=== PATIENT | female | born 1955 | race Caucasian/White ===

== ENCOUNTER 2017-12-31 02:15 | Emergency (ER) | payer MEDICARE ==
[~2017-12-31] VITALS: Ht 160 cm; Wt 85.9 kg
[2017-12-31 02:18] VITALS: Ht 160 cm; Wt 85.9 kg
[2017-12-31] MEDS ORDERED: MORPHINE IMMEDI15 MG PO (02:19)
[2017-12-31] MEDS ORDERED: BUPROPION XL300 MG (02:19)
[2017-12-31] MEDS ORDERED: LEXAPRO20 MG PO (02:20)
[2017-12-31] MEDS ORDERED: ELAVIL25 MG (02:20)
[2017-12-31] MEDS ORDERED: LYRICA150 MG (02:20)
[2017-12-31] MEDS ORDERED: NORCO 7.5/325 T1 TA1 (02:20)
[2017-12-31] MEDS ORDERED: CYCLOBENZAPRINE10 MG (02:20)
[2017-12-31 03:32] LABS: BASOPHILS 0.5 % (0-2); HEMATOCRIT 40.7 % (36.0-48.0); HEMOGLOBIN 13.4 g/dL (12-16); IMMATURE GRANULOCYTES 0.3 % (0-5); LYMPHOCYTES 35.4 % (15-50); MCH 30.9 pg (26.0-34.0); MCHC 32.9 g/dL (31.0-37.0); MEAN PLATELET VOLUME 9.8 fL (7.4-10.4); NEUTROPHILS 49.8 % (40-80); PLATELET COUNT 249 10x3/uL (130-400); RBC 4.33 10x6/uL (4.00-5.40); RDW 13.8 % (11.5-14.5)
[2017-12-31 03:48] LABS: ALBUMIN 3.5 g/dL (3.4-5.0); BILIRUBIN - TOTAL 0.2 mg/dL (0.2-1.3); CALCIUM 8.7 mg/dL (8.5-10.1); CARBON DIOXIDE 32.6 mmol/L (21.0-32.0); CREATININE - SERUM 0.9 mg/dL (0.6-1.3); POTASSIUM - SERUM 3.6 mmol/L (3.5-5.1); PROTEIN - SERUM 7.1 g/dL (6.4-8.2)
[2017-12-31 06:58] VITALS: BP 132/78
== END 2017-12-31 06:35 | disposition home or self-care (01) ==
LOC: EDBD 02:15 → D.ER 02:15
PROVIDERS: Family Medicine
DX: S06.0X0A Concussion without loss of consciousness, initial encounter (principal); W01.0XXA Fall on same level from slipping, tripping and stumbling without subsequent striking against object, initial encounter; Y93.89 Activity, other specified; Y92.019 Unspecified place in single-family (private) house as the place of occurrence of the external cause; M54.5 Low back pain

== ENCOUNTER → 2018-01-05 15:25 | Outpatient (CLI) | payer MEDICARE ==
[2017-12-31 02:18] VITALS: BMI 33.5
[~2018-01-05 15:25] MED LIST: BUPROPION XL300 MG; CYCLOBENZAPRINE10 MG; ELAVIL25 MG; LEXAPRO20 MG PO; LYRICA150 MG; MORPHINE IMMEDI15 MG PO; NORCO 7.5/325 T1 TA1
== END | disposition home or self-care (01) ==
LOC: D.CT 15:25
DX: M25.561 Pain in right knee (principal)

== ENCOUNTER 2018-09-18 13:18 | Inpatient (IN) | payer MEDICARE ==
[~2018-09-18] VITALS: Ht 162.6 cm; Wt 77.6 kg
[~2018-09-18 13:18] MED LIST changes: -BUPROPION XL300 MG; +BUPROPION XL300 MG PO; -CYCLOBENZAPRINE10 MG; +CYCLOBENZAPRINE10 MG PO; -ELAVIL25 MG; +ELAVIL25 MG PO; +HYDROCODON-ACE1 EAC2 PO; -LYRICA150 MG; +LYRICA150 MG PO; -NORCO 7.5/325 T1 TA1
--- NOTE | 2018-09-18 14:20 | NUR ---
PATIENT AMBULATED TO FLOOR. RECEIVED TO ROOM FOR INTAKE. ASSUMED CARE.
[2018-09-18] MEDS ORDERED: AMBIEN10 MG PO (14:23)
[2018-09-18] MEDS ORDERED: CLIMARA 0.0.1 MG/PAT TRANSDERM (14:24)
[2018-09-18] MEDS ORDERED: NORVASC2.5 MG PO (14:24)
[2018-09-18 16:20] VITALS: BMI 29.4
--- NOTE | 2018-09-18 16:30 | NUR ---
20G PIV PLACED IN RIGHT AC BY MELINA SCHNEIDERHIDE HOUSE SUPERVISOR.
[2018-09-18 18:41] VITALS: BP 139/58
--- NOTE | 2018-09-18 19:22 | NUR ---
PT ALERT AND ORIENTED. STATES SHE HAS BEEN SYMPTAMATIC FOR A WHILE NOW BUT IN MAY AND CONTRIBUTED SYMPTOMS TO GRIEF AND STRESS. PT STATES SHE DOES NOT LIKE ZOFRAN. ABDOMINAL ASSESSMENT PRESENTS WITH SOFT ABDOMEN, ACTIVE BOWELS, PAIN TO RIGHT UPPERA ND LOWER QUADRANT. PT PRESENTS WITH JAUNDICE AND YELLOW SCLERA IN BILATERAL EYES. PT COMPLAINS OF DISCOMFORT. AWAITING ORDERS FOR PAIN MEDICINE AND WILL ADMINSITER WHEN AVAILABLE. CALL LIGHT IN REACH.
[2018-09-18 20:12] LABS: AMYLASE - SERUM 24 U/L (25-115); LIPASE 77 U/L (73-393)
--- NOTE | 2018-09-18 20:20 | NUR ---
PAIN MEDICINE ADMINSITERED PER ORDER. PT TOLERATED WELL.
[2018-09-18 20:36] VITALS: BP 127/60
[2018-09-19 01:08] VITALS: BP 143/76
--- NOTE | 2018-09-19 02:34 | NUR ---
I have reviewed this patient and I concur with the Shift Assessment completed by the Licensed Practical Nurse today this shift.
[2018-09-19 05:29] VITALS: BP 150/76
[2018-09-19 06:03] LABS: BASOPHILS 0 % (0-2); EOSINOPHILS 0.4 % (0-7); HEMATOCRIT 37.1 % (36.0-48.0); HEMOGLOBIN 12.7 g/dL (12-16); IMMATURE GRANULOCYTES 0.3 % (0-5); MCH 31.8 pg (26.0-34.0); MCHC 34.2 g/dL (31.0-37.0); MCV 92.8 fL (80.0-100.0); MEAN PLATELET VOLUME 11.6 fL (7.4-10.4); MONOCYTES 10.1 % (2-11); NEUTROPHILS 76.2 % (40-80); PLATELET COUNT 272 10x3/uL (130-400); RDW 15.6 % (11.5-14.5); WBC 13.3 10x3/uL (4.8-10.8)
[2018-09-19 06:41] LABS: ALBUMIN 2.4 g/dL (3.4-5.0); ALKALINE PHOSPHATASE 632 U/L (46-116); ALT (SGPT) 68 U/L (10-68); BILIRUBIN - TOTAL 13.77 mg/dL (0.2-1.3); CALC OSMOLALITY 270 mosm/kg (275-300); CALCIUM 8.2 mg/dL (8.5-10.1); CARBON DIOXIDE 29.2 mmol/L (21.0-32.0); CHLORIDE - SERUM 96 mmol/L (98-107); CREATININE - SERUM 0.6 mg/dL (0.6-1.3); GLUCOSE 120 mg/dL (74-106); PROTEIN - SERUM 6.4 g/dL (6.4-8.2); SODIUM 136 mmol/L (136-145); UREA NITROGEN 8 mg/dL (7-18); eGFR NON AFRICAN AMERICAN > 90 mL/min (90-120)
[2018-09-19 06:45] LABS: INR 1.12 (0.85-1.17); POTASSIUM - SERUM 2.6 mmol/L (3.5-5.1); PROTIME 13.9 SECONDS (11.6-15.0)
--- NOTE | 2018-09-19 07:15 | NUR ---
INITIAL ROUNDING, THE PATIENT IS AWAKE AND RESTING IN BED, IV PUMP BEEPING, NEW BAG OF FLUIDS AT THIS TIME. NO S/S OF SOB/DISTRESS NOTED. 0734 DR JENKINS RETURNED THE PAGE AND WAS NOTIFIED OF THE CONSULT 0735 DR SANCHEZ RETURNED THE PAGE AND WAS NOTIFIED OF THE K+ 2.6 RESULT, NEW ORDER TO FOLLOW ELECTROLYTE PROTOCOL GIVEN.
--- NOTE | 2018-09-19 07:30 | NUR ---
CALLED AND SPOKE TO OSWALDO WITH THE ANSWERING SERVICE AT DR VIDES OFFICE. ASKED TO HAVE THE DOCTOR PAGED TO REPORT CRITICAL LAB.
--- NOTE | 2018-09-19 07:32 | NUR ---
PAGED DR JENKINS AT THIS TIME TO REPORT CONSULT FROM DR CALLE
[2018-09-19 08:27] VITALS: BP 144/71
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
[2018-09-19 12:35] VITALS: BP 132/69
[2018-09-19 16:30] VITALS: BP 143/73
--- NOTE | 2018-09-19 17:11 | NUR ---
NPO STATUS AT THIS TIME. SITTING ON SIDE OF BED TALKING ON PHONE. JAUNIDCE SKIN. IV POTASSIUM INFUSING AT 50 CC/HR. STILL NEEDING 2 MORE BAGS OF POTASSIUM RIDERS. WILL MONITOR.
--- NOTE | 2018-09-19 19:00 | NUR ---
PATIENT RESTING IN BED AND DENIES NEEDS AT THIS TIME. BED IN LOWEST POSITION AND CALL LIGHT WITHIN REACH. ENCOURAGED THE PATIENT TO CALL IF SHE HAS NEEDS. WILL CONTINUE TO MONITOR.
[2018-09-19 20:21] VITALS: BP 153/74
[2018-09-20 00:12] VITALS: BP 143/68
[2018-09-20 04:25] VITALS: BP 143/72
[2018-09-20 05:48] LABS: BASOPHILS 0.3 % (0-2); EOSINOPHILS 4.8 % (0-7); HEMATOCRIT 34.6 % (36.0-48.0); HEMOGLOBIN 11.7 g/dL (12-16); IMMATURE GRANULOCYTES 0.4 % (0-5); LYMPHOCYTES 24.7 % (15-50); MCH 31.6 pg (26.0-34.0); MCHC 33.8 g/dL (31.0-37.0); MCV 93.5 fL (80.0-100.0); MEAN PLATELET VOLUME 11.1 fL (7.4-10.4); MONOCYTES 11.3 % (2-11); NEUTROPHILS 58.5 % (40-80); PLATELET COUNT 281 10x3/uL (130-400); RDW 15.9 % (11.5-14.5)
[2018-09-20 05:53] LABS: WBC 7.1 10x3/uL (4.8-10.8)
[2018-09-20 06:06] LABS: ALBUMIN 2.2 g/dL (3.4-5.0); ALKALINE PHOSPHATASE 656 U/L (46-116); ALT (SGPT) 59 U/L (10-68); CALC OSMOLALITY 273 mosm/kg (275-300); CALCIUM 8.3 mg/dL (8.5-10.1); CARBON DIOXIDE 27.4 mmol/L (21.0-32.0); CHLORIDE - SERUM 100 mmol/L (98-107); GLUCOSE 94 mg/dL (74-106); PROTEIN - SERUM 6.3 g/dL (6.4-8.2); SODIUM 138 mmol/L (136-145); UREA NITROGEN 8 mg/dL (7-18)
[2018-09-20 06:07] LABS: CREATININE - SERUM 0.4 mg/dL (0.6-1.3); eGFR NON AFRICAN AMERICAN > 90 mL/min (90-120)
[2018-09-20 06:08] LABS: POTASSIUM - SERUM 2.8 mmol/L (3.5-5.1)
--- NOTE | 2018-09-20 07:20 | NUR ---
PT RESTING IN BED, EYES CLOSED. RESPIRATIONS EVEN AND UNLABORED. AROUSE TO VOICE. PT ALERT AND ORIENTED. UP AD NATACHA. PT HAS A LOWER SPINE STIMULATOR. ON ELECTROLYTE PROTOCOL. POTASSIUM 2.8, 1ST DOSE GIVEN PRIOR TO SHIFT CHANGE. MAGNESIUM LEVEL STILL PENDING. IV TO RIGHT AC, NS INFUSING @ 125ML/HR. SITE PATENT WITHOUT REDNESS OR SWELLING. PT DENIES ANYTHING FURTHER AT THIS TIME. CALL LIGHT IN REACH. WILL CONTINUE TO MONITOR.
[2018-09-20 08:39] VITALS: BP 164/82
[2018-09-20 12:52] VITALS: BP 142/70
[2018-09-20 16:00] VITALS: BP 162/86
--- NOTE | 2018-09-20 16:00 | NUR ---
ALERT AND ORIENTED X4. SITTING UP IN BED. PAIN MANAGEMENT CONTINUED. AGREE WITH HAND BRIM IRONER ASSESSMENT. LOYDA PATE CONTINUES PLAN OF CARE AND SAFETY PRECAUTIONS.
[2018-09-20 17:04] LABS: MAGNESIUM - SERUM 1.8 mg/dL (1.8-2.4)
[2018-09-20 17:05] LABS: POTASSIUM - SERUM 3.5 mmol/L (3.5-5.1)
--- NOTE | 2018-09-20 18:33 | NUR ---
PT RESTING IN BED, EYES OPEN. C/O PAIN, GAVE DILAUDID. NO S/S OF ACUTE DISTRESS NOTED. PT DENIES ANYTHING FURTHER AT THIS TIME. CALL LIGHT IN REACH. WILL CONTINUE TO MONITOR.
--- NOTE | 2018-09-20 19:25 | NUR ---
PATIENT RESTING IN BED AND DENIES NEEDS AT THIS TIME. ADMINISTERED MEDS PER ORDERS. BED IN LOWEST POSITION AND CALL LIGHT WITHIN REACH. ENCOURAGED THE PATIENT TO CALL IF SHE HAS NEEDS. WILL CONTINUE TO MONITOR.
[2018-09-20 20:19] VITALS: BP 171/81
[2018-09-21] VITALS (14 sets, daily range): BP systolic 114–179; BP diastolic 60–86
--- NOTE | 2018-09-21 07:26 | NUR ---
AWAKE AND ALERT. ORIENTED X3. C/O NAUSEA THIS AM. GIVEN 25MG PHENERGAN IM FOR SAME. WILL MONITOR. LUNGS ARE CLEAR BILATERALLY, NO COUGH NOTED. SKIN IS INTACT WITHOUT REDNESS BUT VERY JAUNDICED. IV TO RIGHT AC IS PATENT WITHOUT REDNESS AT INSERTION SITE. DENIES FURTHER NEEDS. LAB HERE TO DRAW BLOOD.
[2018-09-21 07:36] LABS: BASOPHILS 0.7 % (0-2); EOSINOPHILS 3.2 % (0-7); HEMATOCRIT 35.4 % (36.0-48.0); HEMOGLOBIN 11.9 g/dL (12-16); IMMATURE GRANULOCYTES 0.4 % (0-5); LYMPHOCYTES 25.4 % (15-50); MCH 31.1 pg (26.0-34.0); MCHC 33.6 g/dL (31.0-37.0); MCV 92.4 fL (80.0-100.0); MEAN PLATELET VOLUME 10.8 fL (7.4-10.4); MONOCYTES 7.9 % (2-11); NEUTROPHILS 62.4 % (40-80); PLATELET COUNT 296 10x3/uL (130-400); RBC 3.83 10x6/uL (4.00-5.40); WBC 6.9 10x3/uL (4.8-10.8)
[2018-09-21 07:52] LABS: ALBUMIN 2.2 g/dL (3.4-5.0); ALKALINE PHOSPHATASE 684 U/L (46-116); ALT (SGPT) 58 U/L (10-68); BILIRUBIN - DIRECT 8.11 mg/dL (0.00-0.30); BILIRUBIN - TOTAL 9.62 mg/dL (0.2-1.3); CALC OSMOLALITY 277 mosm/kg (275-300); CALCIUM 8.1 mg/dL (8.5-10.1); CARBON DIOXIDE 25.7 mmol/L (21.0-32.0); CHLORIDE - SERUM 101 mmol/L (98-107); GLUCOSE 115 mg/dL (74-106); POTASSIUM - SERUM 3.3 mmol/L (3.5-5.1); PROTEIN - SERUM 6.1 g/dL (6.4-8.2); SODIUM 140 mmol/L (136-145); UREA NITROGEN 7 mg/dL (7-18)
[2018-09-21 08:04] LABS: CREATININE - SERUM 0.6 mg/dL (0.6-1.3); eGFR NON AFRICAN AMERICAN > 90 mL/min (90-120)
--- NOTE | 2018-09-21 09:31 | NUR ---
REQUESTED AND GIVEN 1 MG DILAUDID SLOW IVP FOR C/O ABDOMEN/BACK PAIN LEVEL 7. WILL MONITOR.
--- NOTE | 2018-09-21 12:10 | NUR ---
OFF UNIT VIA BED FOR PROCEDURE. FAMILY AT BEDSIDE.
--- NOTE | 2018-09-21 13:11 | NUR ---
24CC CONTRAST 0.6 MIN FLURO TIME
--- NOTE | 2018-09-21 13:42 | NUR ---
CARE ASSUMED FROM BERTIN PEREZ RN, AND MARY IBRAHIM CRNA.
--- NOTE | 2018-09-21 14:14 | NUR ---
RETURNED FROM PROCEDURE. A/O X3. RIGHT SIDE OF FACE IS SWOLLEN AT THIS TIME. DENIES NEEDS. FAMILY AT BEDSIDE.
--- NOTE | 2018-09-21 15:15 | NUR ---
SPOKE WITH 'S NURSE RE ELEVATED BP AND HOME MED LIST. WAITING ON CALLBACK.
--- NOTE | 2018-09-21 18:20 | NUR ---
C/O INTENSE HEADACHE AND NAUSEA. GIVEN ONE MG DILAUDID SLOW IVP AND 25MG PHENERGAN IM TO RIGHT HIP FOR SAME. WILL MONITOR. DENIES FURTHER NEEDS.
--- NOTE | 2018-09-21 20:15 | NUR ---
REST IN BED, CALL LIGHT IN REACH.
--- NOTE | 2018-09-22 02:00 | NUR ---
PT RESTING, EYES CLOSED. RR ARE EVEN AND UNLABORED. NO S/S OF DISTRESS. BED LOW. CL IN REACH. WCTM.
--- NOTE | 2018-09-22 03:53 | NUR ---
REST IN BED, RESP EVEN, NO S/S OF DISTRESS, CALL LIGHT IN REACH.
[2018-09-22 04:30] VITALS: BP 156/76
[2018-09-22 06:36] LABS: HEMATOCRIT 35.5 % (36.0-48.0); MCH 31.5 pg (26.0-34.0); MCHC 33.8 g/dL (31.0-37.0); MCV 93.2 fL (80.0-100.0); MEAN PLATELET VOLUME 11.2 fL (7.4-10.4); PLATELET COUNT 355 10x3/uL (130-400); RBC 3.81 10x6/uL (4.00-5.40); RDW 16.3 % (11.5-14.5)
[2018-09-22 06:39] LABS: WBC 9.2 10x3/uL (4.8-10.8)
[2018-09-22 06:42] LABS: LYMPHOCYTES 25 % (15-50); MONOCYTES 6 % (2-11); NEUTROPHILS 69 % (40-80); PLATELET ESTIMATE NORMAL; PLATELET MORPHOLOGY NORMAL PLT MORPH
[2018-09-22 07:22] LABS: ALBUMIN 2.2 g/dL (3.4-5.0); ALKALINE PHOSPHATASE 670 U/L (46-116); ALT (SGPT) 59 U/L (10-68); BILIRUBIN - TOTAL 6.12 mg/dL (0.2-1.3); CALC OSMOLALITY 272 mosm/kg (275-300); CALCIUM 8.5 mg/dL (8.5-10.1); CARBON DIOXIDE 28.1 mmol/L (21.0-32.0); CHLORIDE - SERUM 101 mmol/L (98-107); CREATININE - SERUM 0.7 mg/dL (0.6-1.3); GLUCOSE 126 mg/dL (74-106); POTASSIUM - SERUM 3.1 mmol/L (3.5-5.1); PROTEIN - SERUM 6.3 g/dL (6.4-8.2); SODIUM 136 mmol/L (136-145); eGFR NON AFRICAN AMERICAN 90 mL/min (90-120)
[2018-09-22 07:24] LABS: UREA NITROGEN 9 mg/dL (7-18)
--- NOTE | 2018-09-22 08:23 | NUR ---
CALLED SX AND THEY STATED THEY DO NOT HAVE PT ON THE SCHEDULE FOR LAP UNRULY TODAY AND TO CALL DR. JENKINS'S OFFICE. CALLED DR. JENKINS'S OFFICE AND THEY STATED THEY DO NOT KNOW WHO PT IS AND TO CALL ADRIENNE SERRANO OR DR. JENKINS. PAGED ADRIENNE SERRANO.
--- NOTE | 2018-09-22 08:30 | NUR ---
SPOKE WITH DR. JENKINS HE STATES HE CAN NOT FIT PT IN FOR SX TODAY. SO PT CAN HAVE FULL LIQUID DIET ADVANCE TOLERATED AND HE WILL COME SPEAK WITH PT TODAY AFTER HIS FIRST CASE. HE STATES HE WON'T BE ABLE TO FIT PT IN TILL FRIDAY.
[2018-09-22 08:48] VITALS: Ht 162.6 cm; Wt 77.6 kg
[2018-09-22 09:23] VITALS: BP 137/73
--- NOTE | 2018-09-22 10:56 | NUR ---
SPOKE WITH DR. AGUSTIN AND HE STATES TO REORDER ALL HOME MEDS EXCEPT THE MORPHINE AND HYDROCODONE. HE ALSO ASKS WHEN PT WILL HAVE LAP UNRULY AND I STATED TO HIM DR. JENKINS SAID HE IS PLANNING FOR FRIDAY. HE ASKED IF DR. JENKINS WAS GOING TO DC PT AND I STATED TO HIM HE STATED TO ME HE WAS GOING TO COME SEE PT TODAY AND IN HIS NOTE YESTERDAY SAID THAT IF PT DID NOT GET LAP UNRULY TODAY HE WOULD POSSIBLY DC HER. DR. AGUSTIN STATED TO LET HIM KNOW WHAT DR. JENKINS IS WANTING TO DO REGARDING DC. I VERBALIZED UNDERSTANDING. EXPLAINED MY CONVERSATION TO PT AND PT'S FAMILY AND THEY VERBALZIED UNDERSTANDING.
[2018-09-22 12:30] VITALS: BP 168/79
--- NOTE | 2018-09-22 14:00 | NUR ---
PT HIGHLY UPSET THAT SHE HAS NOT BEEN DISCHARGED. TRIED EXPLAINING TO HER THE TIRE BALANCER IS WORKING ON IT. SHE STATES IT HAS BEEN TWO HOURS SINCE DR. JEKNINS STATED TO HER SHE WAS GETTING DISCHARGED. I STATED TO HER IT'S NOT UP TO ME OR THE DOCTOR WHAT TIME SHE WILL BE DISCHARGED THE TIRE BALANCER WORKS ON DISCHARGES. SHE THEN STATED TO ME THAT I WAS NOT A PATIENT ADVOCATE AND SHE IS GOING TO REPORT ME TO ADMINISTRATION FOR NOT GETTING HER DISCHARGED RIGHT AWAY. I STATED TO HER OK AND ASKED IF THERE IS ANYTHING I CAN DO FOR HER RIGHT NOW UNTIL I GET YOUR PAPERWORK AND SHE STATED NO.
--- NOTE | 2018-09-22 14:18 | NUR ---
[employer] PI DEVELOPER SHANDA CALLED OUTPATIENT SCHEDULING TO INQUIRE ABOUT TIME OF PATIENTS CHOLECYSTECTOMY SO IT COULD BE RELAYED TO PT AND PUT IN DISCHARGE INSTRUCTIONS. OP SCHEDULING ADVISED HER THEY COULD NOT TELL HER A TIME. I CALLED DR. JENKINS'S OFFICE AND SPOKE TO FREDDY WHO ALSO COULD NOT LOCATE A TIME. I ASKED IF ANYONE FROM OFFICE WAS GOING TO GO OVER PRE INSTRUCTIONS AND SHE ADVISED THAT SOMEONE FROM OUTPATIENT WILL CALL HER DAY BEFORE SURGERY WITH TIME. I AGAIN ASKED IF PATIENT WOULD RECEIVE INSTRUCTIONS FROM DR. JENKINS'S OFFICE REGARDING INSTRUCTIONS FOR PRIOR TO SURGERY AND SHE THEN SAID SHE WOULD PUT A NOTE IN FOR SOMEONE FROM DR. JENKINS'S OFFICE TO CALL PT.
--- NOTE | 2018-09-22 14:30 | NUR ---
GIVEN DISCHARGE PAPERS BY MICHAEL MATHUR. WILL DISCHARGE PT.
--- NOTE | 2018-09-22 14:32 | NUR ---
LEFT WRIST IV DC'D WITH CATH INTACT. DISCHARGE INSTRUCTIONS GIVEN TO PT AND EXPLAINED. SHE VERBALIZED UNDERSTANDING, BUT WAS VERY PASSIVE WITH TEACHING. CHART COPY WAS SIGNED. STATED TO PT I WILL CALL FOR AN ESCORT AND THEY WILL WHEEL YOU OUT. PT REFUSED WC AND STATES SHE WILL JUST WALK. PT'S DAUGHTER ACCOMPANIED PT. ASKED BOTH OF THEM IF THEY WOULD LIKE HELP CARING BELONGINGS AND THEY BOTH REFUSED. PT LEFT WITH DAUGHTER.
[2018-09-24] MEDS ORDERED: PHENERGAN25 M1 PO (11:15)
== END 2018-09-22 15:05 | disposition home or self-care (01) | DRG 445 ==
LOC: D.M3 13:18
PROVIDERS: Internal Medicine Gastroenterology; ADMIT Family Medicine; ATTEND Family Medicine
PROC: 0FC98ZZ Extirpation of Matter from Common Bile Duct, Via Natural or Artificial Opening Endoscopic (ICD-10-PCS; principal; 2018-09-21 12:52)
DX: K80.43 Calculus of bile duct with acute cholecystitis with obstruction (principal); R17 Unspecified jaundice; Z86.73 Personal history of transient ischemic attack (TIA), and cerebral infarction without residual deficits; F32.9 Major depressive disorder, single episode, unspecified; F41.9 Anxiety disorder, unspecified; I10 Essential (primary) hypertension

== ENCOUNTER 2018-09-25 08:46 | Day surgery (SDC) | payer MEDICARE ==
[~2018-09-25] VITALS: Ht 162.6 cm; Wt 77.1 kg
[~2018-09-25 08:46] MED LIST changes: +AMBIEN10 MG PO; +CLIMARA 0.0.1 MG/PAT TRANSDERM; +NORVASC2.5 MG PO; +PHENERGAN25 M1 PO
[2018-09-25 09:26] LABS: CALC OSMOLALITY 275 mosm/kg (275-300); CALCIUM 8.5 mg/dL (8.5-10.1); CARBON DIOXIDE 27.6 mmol/L (21.0-32.0); CHLORIDE - SERUM 101 mmol/L (98-107); CREATININE - SERUM 0.8 mg/dL (0.6-1.3); GLUCOSE 116 mg/dL (74-106); POTASSIUM - SERUM 3.3 mmol/L (3.5-5.1); SODIUM 138 mmol/L (136-145); UREA NITROGEN 9 mg/dL (7-18); eGFR NON AFRICAN AMERICAN 77 mL/min (90-120)
[2018-09-25 09:45] LABS: BASOPHILS 0.6 % (0-2); EOSINOPHILS 9.3 % (0-7); HEMATOCRIT 36.5 % (36.0-48.0); IMMATURE GRANULOCYTES 0.9 % (0-5); LYMPHOCYTES 34.5 % (15-50); MCH 30.9 pg (26.0-34.0); MCHC 32.9 g/dL (31.0-37.0); MCV 94.1 fL (80.0-100.0); MEAN PLATELET VOLUME 10.6 fL (7.4-10.4); MONOCYTES 9.1 % (2-11); NEUTROPHILS 45.6 % (40-80); PLATELET COUNT 375 10x3/uL (130-400); RBC 3.88 10x6/uL (4.00-5.40); RDW 16.3 % (11.5-14.5); WBC 9.6 10x3/uL (4.8-10.8)
[2018-09-25 09:56] VITALS: BP 134/75; Ht 162.6 cm; Wt 77.1 kg
[2018-09-25] MEDS ORDERED: HYDROCODON-ACE1 EA10 PO (11:54)
--- NOTE | 2018-09-25 12:50 | NUR ---
REC'D FROM RR. FAMILY AT BEDSIDE. DRESSINGS CDI TO ABDOMEN. COLA AND FL TRAY BROUGHT TO PT.
--- NOTE | 2018-09-25 13:50 | NUR ---
ATE FL TRAY HOWEVER BECAME NAUSEATED.
--- NOTE | 2018-09-25 13:52 | NUR ---
PHENERGAN 12.5MG ADMINISTERED PER ORDERS. FAMILY AT BEDSIDE.
--- NOTE | 2018-09-25 14:04 | OP ---
PATIENT NAME: LETICIA DE LEON MEDICAL RECORD: [id number] :57 LOCATION:[facility] ADMISSION DATE: SURGEON: JASON JENKINS MD DATE OF OPERATION: 09/25/2018 PREOPERATIVE DIAGNOSES: 1. Gallstones. 2. Jaundice with recent choledocholithiasis status post ERCP. POSTOPERATIVE DIAGNOSES: 1. Gallstones. 2. Jaundice with recent choledocholithiasis status post ERCP. PROCEDURE: 1. Laparoscopic cholecystectomy. 2. Intraoperative cholangiogram. 3. Fluoroscopic interpretation. 4. Liver biopsy. SURGEON: Jason Jenkins MD ENGINEERING OPERATOR: Elif Velasquez APRN REPORT OF OPERATION: The patient's abdomen was prepped and draped in sterile fashion. A cutdown was made on the superior aspect of the umbilicus, 0 Vicryls were placed in the fascia bilaterally and the fascia was incised with 15-blade. I then bluntly entered the peritoneal cavity and placed a 12-mm Rosalia port. Under direct visualization, a 5 mm trocar was placed in the epigastrium and 2 more 5-mm trocars were placed in the right subcostal region. The gallbladder was grasped and elevated. The cystic artery and cystic duct were dissected free. The cystic duct was clipped proximally and a small opening was made. A Cook cholangiocath was brought through the abdominal wall and placed in the cystic duct. A cholangiogram was performed and it showed good flow of contrast through the cystic duct out through the ampulla into the duodenum. There was backfilling into the 2 branches of the liver and there was no sign of any filling defects present. At this point, the cholangiocath was removed and the cystic duct was clipped twice distally and ligated. The cystic artery was clipped proximally and distally and ligated in standard fashion. We then took the gallbladder off the liver bed using electrocautery. Any bleeding from the liver bed was then treated with electrocautery. The liver itself had some strange discoloration. There was no sign of any cirrhosis or cobblestoning. We elected to perform liver biopsies of the right side of the liver with 14 Thom-Cut biopsy device. The specimens were sent off for permanent. Any bleeding from these biopsy sites were treated with electrocautery. We then irrigated out the right upper quadrant and assured there was no sign of any bleeding or bile leakage. At this point, the ports and insufflation were then removed and the gallbladder was taken out through the umbilicus. The umbilical fascia was closed with interrupted 0 Vicryls times 3. The wounds were then irrigated out with normal saline and infused with 10 mL of 0.25% Marcaine with epinephrine. The skin incisions were all closed with subcutaneous 5-0 Monocryl and dressed appropriately. COMPLICATIONS: None. CONDITION: Stable. OPERATIVE REPORT [id number] LETICIA DE LEON ANESTHESIA: General endotracheal and local. BLOOD LOSS: Minimal. TRANSINT:[id number] Voice Confirmation ID: [id number] DOCUMENT ID: [id number] JASON JENKINS MD at 1404 CC: SHAWNA AGUSTIN and STEPHY LANDIN DO [id number] DICTATION DATE: 09/25/18 1203 TOOTH GRINDER: 09/25/18 1320 REG [facility] [address] [place] [address]
--- NOTE | 2018-09-25 14:09 | NUR ---
AMBULATED TO BATHROOM. VOIDED WITHOUT DIFFICULTY. RELATES NAUSEA IS BETTER AFTER MOVING AROUND AND THE PHENERGAN.
--- NOTE | 2018-09-25 14:30 | NUR ---
IV DC'D WITH CATHETER INTACT. WRITTEN AND VERBAL DC INST. GIVEN TO PT ALONG WITH RX. VERBALIZED UNDERSTANDING.
--- NOTE | 2018-09-25 14:35 | NUR ---
DC'D HOME WITH FAMILY VIA PRIVATE VEHICLE. TAKEN TO VEHICLE VIA WC. STABLE AT TIME OF DC .
== END 2018-09-25 14:35 | disposition home or self-care (01) ==
LOC: D.OPS 08:46 → D.PAN 10:30 → D.OPS 10:30
PROVIDERS: ATTEND Surgery
DX: K80.10 Calculus of gallbladder with chronic cholecystitis without obstruction (principal); R17 Unspecified jaundice; Z01.812 Encounter for preprocedural laboratory examination